=== PATIENT | female | born 1970 | race Caucasian/White ===

== ENCOUNTER 2016-12-24 10:43 | Emergency (ER) | payer SELFPAY ==
[~2016-12-24 10:43] MED LIST: DICL100T2 PO
--- NOTE | 2016-12-24 11:29 | NUR ---
PER CHRISTIE CHIANG, PT TO BE TRIAGED WHEN SHE IS PLACED IN BED.
--- NOTE | 2016-12-24 11:55 | NUR ---
PATIENT LEFT WITHOUT BEING SEEN BY DR. CHRISTOPHER. NO FURTHER CARE PROVIDED FOR PATIENT.
== END 2016-12-24 11:55 | disposition left against medical advice (07) ==
LOC: MED 10:43
DX: Z53.21 Procedure and treatment not carried out due to patient leaving prior to being seen by health care provider (principal)

== ENCOUNTER 2017-05-09 22:50 | Emergency (ER) | payer BC, MEDICAID ==
[~2017-05-09] VITALS: Ht 162.6 cm; Wt 83.1 kg
--- NOTE | 2017-05-09 23:07 | NUR ---
PT TAKEN TO BED 3
[2017-05-09 23:08] VITALS: BP 127/84
--- NOTE | 2017-05-09 23:08 | NUR ---
46 Y/O F W/C/O VAGINAL DISCHARGE/BURNING X 2 WKS S/P WASHING HONEY AREA WITH VINEGAR. NO MED HX. PT STATES WAS AT [facility] X 1 1/2 WK AGO AND SENT HOME WITH A CREAM BUT PT STATES NOT GETTING BETTER. ER MADE AWARE.
--- NOTE | 2017-05-10 00:17 | NUR ---
Patient being evaluated by physician at bedside.
[2017-05-10] MEDS ORDERED: KETOROLAC 60 MG/2 ML VIAL IM ONE (00:25)
[2017-05-10 00:50] VITALS: BP 119/77
--- NOTE | 2017-05-10 00:50 | NUR ---
Patient discharged with v/s stable. Written and verbal after care instructions given and explained. Patient alert, oriented and verbalized understanding of instructions. Ambulatory with steady gait. All questions addressed prior to discharge. ID band removed. Patient advised to follow up with PMD. Rx of HYDROCORTISONE, CIPRO, MOTRIN AND DIFLUCAN given. Patient educated on indication of medication including possible reaction and side effects. Opportunity to ask questions provided and answered.
== END 2017-05-10 00:50 | disposition home or self-care (01) ==
LOC: MED 22:50
DX: N12 Tubulo-interstitial nephritis, not specified as acute or chronic (principal); B37.9 Candidiasis, unspecified; Z79.899 Other long term (current) drug therapy
CPT/HCPCS: 81002; 81025; 96372; 99283; J1885

== ENCOUNTER 2018-11-13 12:53 | Emergency (ER) | payer BC, MEDICAID ==
[~2018-11-13] VITALS: Ht 152.4 cm; Wt 88.0 kg
--- NOTE | 2018-11-13 12:59 | NUR ---
PT AMBULATED TO ER BED 06
[2018-11-13 13:00] VITALS: BP 122/76
--- NOTE | 2018-11-13 13:17 | NUR ---
PPT C/O HEAVY VAGINAL BLEEDING W/ INTERMITTENT CAMPING PELVIC PAIN 5/10 FOR 2 DAYS AND GENERALIZED BODY ACHE. PT STATES SHE HAS NOT HAD PEROID FOR 8 MONTH. SHE CHANGES 5 PADS DAILY APPROXIMATELY. ALSO C/O SORE THROAT, COUGH WITH WHITE PHLEGM SINCE YESTERDAY AND CHRONIC CONSTIPATION. DENIES FEVER, CHEST PAIN, NAUSEA, AND VOMITING. VSS; PATIENT POSITIONED FOR COMFORT; HOB ELEVATED; BEDRAILS UP X1; BED DOWN. ER MD MADE AWARE OF PT STATUS.
[2018-11-13] MEDS ORDERED: PROP10TA28 PO (13:37)
[2018-11-13 14:08] LABS: BASOPHILS % (AUTO) 0.4 % (0.0-2.0); EOSINOPHILS # (AUTO) 0.1 K/uL (0-0.4); EOSINOPHILS % (AUTO) 1.2 % (0.0-4.0); HEMATOCRIT 42.1 % (36-48); HEMOGLOBIN 14.1 g/dL (12.0-16.0); LYMPHOCYTES # (AUTO) 2.7 K/uL (2.5-16.5); LYMPHOCYTES % (AUTO) 22.1 % (20.5-51.1); MEAN CORPUSCULAR HEMOGLOBIN 28 pg (27-31); MEAN CORPUSCULAR HGB CONC 34 g/dL (33-37); MEAN CORPUSCULAR VOLUME 83.4 fL (80-94); MONOCYTES # (AUTO) 0.7 K/uL (0.8-1.0); MONOCYTES % (AUTO) 5.4 % (1.7-9.3); NEUTROPHILS # (AUTO) 8.6 K/uL (1.8-7.7); NEUTROPHILS % (AUTO) 70.9 % (42.2-75.2); PLATELET COUNT (AUTO) 321 K/uL (140-450); RED BLOOD CELL COUNT(AUTO) 5.04 MIL/uL (4.20-5.40); RED CELL DISTRIBUTION WIDTH 13.7 % (11.6-13.7); WHITE BLOOD COUNT (AUTO) 12.2 K/uL (4.8-10.8)
[2018-11-13 14:12] LABS: APPEARANCE,URINE SL CLOUDY (CLEAR); BILIRUBIN,URINE 1+ (NEGATIVE); BLOOD, URINE 3+ (NEGATIVE); COLOR,URINE RED (YELLOW); LEUKOCYTE ESTERASE ,URINE TRACE (NEGATIVE); NITRITE, URINE NEGATIVE (NEGATIVE); PH,URINE 6.5 (5.0-9.0); UGLUCOSE NEGATIVE (NEGATIVE)
[2018-11-13 14:20] LABS: RBC,URINE >100 /HPF (0-5); WBC,URINE 0-5 /HPF (0-5)
--- NOTE | 2018-11-13 14:20 | NUR ---
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
[2018-11-13 14:25] LABS: PROTHROMBIN TIME 9.3 secs (10.8-13.4)
[2018-11-13 15:35] VITALS: BP 120/83
--- NOTE | 2018-11-13 15:36 | NUR ---
Patient discharged with v/s stable. Written and verbal after care instructions given and explained. Patient alert, oriented and verbalized understanding of instructions. Ambulatory with steady gait. All questions addressed prior to discharge. ID band removed. Patient advised to follow up with [facility]. Rx of Provera and Motrin given. Patient educated on indication of medication including possible reaction and side effects. Opportunity to ask questions provided and answered.
== END 2018-11-13 15:36 | disposition home or self-care (01) ==
LOC: MED 12:53
DX: D25.9 Leiomyoma of uterus, unspecified (principal); I10 Essential (primary) hypertension; E05.90 Thyrotoxicosis, unspecified without thyrotoxic crisis or storm; Z98.890 Other specified postprocedural states; Z79.899 Other long term (current) drug therapy
CPT/HCPCS: 36415; 76830; 81001; 81025; 85025; 85610; 85730; 99284; Q0092

== ENCOUNTER 2019-04-18 18:53 | Emergency (ER) | payer MEDICAID ==
[~2019-04-18] VITALS: Ht 162.6 cm; Wt 88.9 kg
[~2019-04-18 18:53] MED LIST changes: -DICL100T2 PO; +PROP10TA28 PO
[2019-04-18 19:18] VITALS: BP 126/74
--- NOTE | 2019-04-18 19:18 | NUR ---
URINE CUP HANDED TO PT FOR SAMPLE
--- NOTE | 2019-04-18 20:34 | NUR ---
PT AMBULATED TO BED 12
--- NOTE | 2019-04-18 20:34 | NUR ---
48 Y/O FEMALE C/O SUDDEN ONSET OF N/V/D X YESTERDAY WITH BODYACHES,FATIGUE, AND GENERALIZED WEAKNESS; ADDS STRONG ODOR TO URINE. CLEAR BREATH SOUNDS THROUGHOUT. ABDOMINAL SOUNDS HEARD ON ALL FOUR QUADRANTS. NO TENDERNESS TO TOUCH; +N/V/D. ERMD MADE AWARE OF STATUS. SIDE RAILSX1. WILL CONTINUE TO MONITOR. HX--HYPERTHYROID RX--UNKNOWN NKDA
[2019-04-18] MEDS ORDERED: NACL 0.9% 1,000 ML IV ONE (21:25)
[2019-04-18 22:26] LABS: BASOPHILS % (AUTO) 0.4 % (0.0-2.0); EOSINOPHILS # (AUTO) 0.1 K/uL (0-0.4); EOSINOPHILS % (AUTO) 1.5 % (0.0-4.0); HEMATOCRIT 42.5 % (36-48); HEMOGLOBIN 13.9 g/dL (12.0-16.0); LYMPHOCYTES # (AUTO) 1.8 K/uL (2.5-16.5); LYMPHOCYTES % (AUTO) 34.3 % (20.5-51.1); MEAN CORPUSCULAR HEMOGLOBIN 28 pg (27-31); MEAN CORPUSCULAR HGB CONC 33 g/dL (33-37); MEAN CORPUSCULAR VOLUME 85.1 fL (80-94); MONOCYTES # (AUTO) 0.6 K/uL (0.8-1.0); MONOCYTES % (AUTO) 11.1 % (1.7-9.3); NEUTROPHILS # (AUTO) 2.7 K/uL (1.8-7.7); NEUTROPHILS % (AUTO) 52.7 % (42.2-75.2); PLATELET COUNT (AUTO) 292 K/uL (140-450); WHITE BLOOD COUNT (AUTO) 5.1 K/uL (4.8-10.8)
[2019-04-18 22:28] LABS: APPEARANCE,URINE CLEAR (CLEAR); BILIRUBIN,URINE NEGATIVE (NEGATIVE); BLOOD, URINE NEGATIVE (NEGATIVE); COLOR,URINE YELLOW (YELLOW); LEUKOCYTE ESTERASE ,URINE NEGATIVE (NEGATIVE); NITRITE, URINE NEGATIVE (NEGATIVE); UGLUCOSE NEGATIVE (NEGATIVE)
[2019-04-18 22:44] LABS: ANION GAP 14.7 (8-16); CARBON DIOXIDE 27.6 mmol/L (21-32); CREATININE 0.6 mg/dL (0.6-1.3); POTASSIUM 3.3 mmol/L (3.5-5.1)
[2019-04-18 22:50] LABS: ALBUMIN 3.7 g/dL (3.4-5.0); TOTAL BILIRUBIN 0.7 mg/dL (0.0-1.0)
[2019-04-18 23:16] VITALS: BP 126/74
--- NOTE | 2019-04-18 23:16 | NUR ---
Patient discharged with v/s stable. Written and verbal after care instructions given and explained. Patient alert, oriented and verbalized understanding of instructions. Ambulatory with steady gait. All questions addressed prior to discharge. ID band removed. Patient advised to follow up with PMD. Rx of ZOFRAN WAS given. Patient educated on indication of medication including possible reaction and side effects. Opportunity to ask questions provided and answered. PT WAS D/C BY DR. LOPEZ
== END 2019-04-18 23:16 | disposition home or self-care (01) ==
LOC: MED 18:53
DX: A08.4 Viral intestinal infection, unspecified (principal); I10 Essential (primary) hypertension; E05.90 Thyrotoxicosis, unspecified without thyrotoxic crisis or storm; Z98.890 Other specified postprocedural states; Z79.899 Other long term (current) drug therapy
CPT/HCPCS: 36415; 80053; 81003; 82150; 83690; 85025; 96360; 99283; J7030

== ENCOUNTER 2019-04-21 21:39 | Emergency (ER) | payer MEDICAID ==
[~2019-04-21] VITALS: Ht 162.6 cm; Wt 88.5 kg
[2019-04-21 22:30] VITALS: BP 121/72
--- NOTE | 2019-04-21 22:33 | NUR ---
TO LOBBY A/W BED AMBULATORY
[2019-04-22 00:43] LABS: APPEARANCE,URINE CLOUDY (CLEAR); BILIRUBIN,URINE NEGATIVE (NEGATIVE); BLOOD, URINE NEGATIVE (NEGATIVE); COLOR,URINE YELLOW (YELLOW); LEUKOCYTE ESTERASE ,URINE NEGATIVE (NEGATIVE); NITRITE, URINE NEGATIVE (NEGATIVE); UGLUCOSE NEGATIVE (NEGATIVE)
--- NOTE | 2019-04-22 00:59 | NUR ---
PT AMBULATED TO ER BED 03
--- NOTE | 2019-04-22 01:30 | NUR ---
48 Y/O FEMALE C/O ABD PAIN NEAR SUPRAPUBIC REGION X 3DAYS. PT STATES SHE HAS URNIARY FREQUENCY, BURNING SENSATION. DENIES ANY N,V,FEVER, OR BLOOD IN URINE. PT STATES SHE HAD DIAHRREA 2 DAYS AGO AND WAS CONSTIPATED YESTERDAY. VSS. ABD IS ROUND, SOFT, TENDER ON SUPRAPUBIC REGION. A & O X4. STEADY GAIT. LUNG SOUNDS CLEAR ALL THROUGHOUT. NKA. PMH: HYPERTHYROID, FIBROIDS ON OVARIES.
[2019-04-22] MEDS ORDERED: KETOROLAC 60 MG/2 ML VIAL IM ONE (02:30)
[2019-04-22 02:45] LABS: BASOPHILS % (AUTO) 0.4 % (0.0-2.0); EOSINOPHILS # (AUTO) 0.1 K/uL (0-0.4); EOSINOPHILS % (AUTO) 1.9 % (0.0-4.0); HEMATOCRIT 41.5 % (36-48); HEMOGLOBIN 13.7 g/dL (12.0-16.0); LYMPHOCYTES # (AUTO) 2.9 K/uL (2.5-16.5); LYMPHOCYTES % (AUTO) 46.7 % (20.5-51.1); MEAN CORPUSCULAR HEMOGLOBIN 28 pg (27-31); MEAN CORPUSCULAR HGB CONC 33 g/dL (33-37); MEAN CORPUSCULAR VOLUME 83.5 fL (80-94); MONOCYTES # (AUTO) 0.5 K/uL (0.8-1.0); MONOCYTES % (AUTO) 7.9 % (1.7-9.3); NEUTROPHILS # (AUTO) 2.7 K/uL (1.8-7.7); NEUTROPHILS % (AUTO) 43.1 % (42.2-75.2); PLATELET COUNT (AUTO) 293 K/uL (140-450); RED BLOOD CELL COUNT(AUTO) 4.97 MIL/uL (4.20-5.40); RED CELL DISTRIBUTION WIDTH 13.8 % (11.6-13.7); WHITE BLOOD COUNT (AUTO) 6.2 K/uL (4.8-10.8)
[2019-04-22 03:00] LABS: ALBUMIN 3.7 g/dL (3.4-5.0); ANION GAP 11.1 (8-16); CARBON DIOXIDE 29.7 mmol/L (21-32); CREATININE 0.6 mg/dL (0.6-1.3); POTASSIUM 3.8 mmol/L (3.5-5.1); TOTAL BILIRUBIN 0.6 mg/dL (0.0-1.0)
[2019-04-22 04:08] VITALS: BP 121/72
--- NOTE | 2019-04-22 04:08 | NUR ---
Patient discharged with v/s stable. Written and verbal after care instructions given and explained. Patient alert, oriented and verbalized understanding of instructions. Ambulatory with steady gait. All questions addressed prior to discharge. ID band removed. Patient advised to follow up with PMD. Rx of BENTYL, AND LACTULOSE given. Patient educated on indication of medication including possible reaction and side effects. Opportunity to ask questions provided and answered.
== END 2019-04-22 04:08 | disposition home or self-care (01) ==
LOC: MED 21:39
DX: R10.9 Unspecified abdominal pain (principal); R30.0 Dysuria; I10 Essential (primary) hypertension; E05.90 Thyrotoxicosis, unspecified without thyrotoxic crisis or storm; Z79.899 Other long term (current) drug therapy
CPT/HCPCS: 36415; 80053; 81003; 82150; 83690; 84703; 85025; 96372; 99283; J1885

== ENCOUNTER 2019-05-17 07:03 | Emergency (ER) | payer MEDICAID ==
[~2019-05-17] VITALS: Ht 157.5 cm; Wt 88.5 kg
[2019-05-17 07:06] VITALS: BP 157/100
--- NOTE | 2019-05-17 07:12 | NUR ---
PT TAKEN TO BED 4
--- NOTE | 2019-05-17 07:24 | NUR ---
PT AMBULATED TO RESTROOM, GAVE SPECIMEN
[2019-05-17] MEDS ORDERED: MECLIZINE 25 MG TAB PO ONE (07:35)
[2019-05-17] MEDS ORDERED: ONDANSETRON 4 MG/2 ML VIAL IVP ONE (07:35)
[2019-05-17] MEDS ORDERED: NACL 0.9% 1,000 ML IV ONE (07:35)
--- NOTE | 2019-05-17 08:42 | NUR ---
Stable. VSS. Afebrile. Denies pain. Awaiting dispo
[2019-05-17 08:51] LABS: BASOPHILS # (AUTO) 0.1 K/uL (0.00-0.22); BASOPHILS % (AUTO) 0.8 % (0.0-2.0); EOSINOPHILS # (AUTO) 0.1 K/uL (0-0.4); EOSINOPHILS % (AUTO) 1.5 % (0.0-4.0); HEMATOCRIT 42.2 % (36-48); HEMOGLOBIN 14.2 g/dL (12.0-16.0); LYMPHOCYTES # (AUTO) 3.9 K/uL (2.5-16.5); MEAN CORPUSCULAR HEMOGLOBIN 28 pg (27-31); MEAN CORPUSCULAR HGB CONC 34 g/dL (33-37); MEAN CORPUSCULAR VOLUME 82.5 fL (80-94); MONOCYTES # (AUTO) 0.7 K/uL (0.8-1.0); MONOCYTES % (AUTO) 6.7 % (1.7-9.3); NEUTROPHILS # (AUTO) 5.4 K/uL (1.8-7.7); PLATELET COUNT (AUTO) 318 K/uL (140-450); RED BLOOD CELL COUNT(AUTO) 5.11 MIL/uL (4.20-5.40); RED CELL DISTRIBUTION WIDTH 13.5 % (11.6-13.7); WHITE BLOOD COUNT (AUTO) 10.2 K/uL (4.8-10.8)
[2019-05-17 09:01] LABS: APPEARANCE,URINE SL CLOUDY (CLEAR); BILIRUBIN,URINE 1+ (NEGATIVE); BLOOD, URINE TRACE-I (NEGATIVE); COLOR,URINE DARK YELLOW (YELLOW); LEUKOCYTE ESTERASE ,URINE 2+ (NEGATIVE); NITRITE, URINE NEGATIVE (NEGATIVE); UGLUCOSE NEGATIVE (NEGATIVE)
[2019-05-17 09:03] LABS: ALBUMIN 3.9 g/dL (3.4-5.0); ANION GAP 11.8 (8-16); CARBON DIOXIDE 27.5 mmol/L (21-32); CREATININE 0.6 mg/dL (0.6-1.3); POTASSIUM 3.3 mmol/L (3.5-5.1); TOTAL BILIRUBIN 0.8 mg/dL (0.0-1.0)
[2019-05-17] MEDS ORDERED: LORazepam 2 MG/ML VIAL IVP ONE (09:25)
[2019-05-17 10:20] VITALS: BP 128/77
--- NOTE | 2019-05-17 10:27 | NUR ---
Stable. VSS. Afebrile. Denies pain. MD has reassessed and Dc'd home To exit
--- NOTE | 2019-05-18 11:50 | NUR ---
Late entry. Confirmed with RN that 0.9 NS IV began at 0745 and completed at 0845
== END 2019-05-17 10:27 | disposition home or self-care (01) ==
LOC: MED 07:03
DX: R42 Dizziness and giddiness (principal); R11.0 Nausea; I10 Essential (primary) hypertension; E07.9 Disorder of thyroid, unspecified; Z79.899 Other long term (current) drug therapy
CPT/HCPCS: 36415; 80053; 81001; 81025; 85025; 87086; 87186; 93005; 96361; 96374; 96375; 99284; J2060; J2405; J7030; J8597

== ENCOUNTER 2019-06-22 16:02 | Emergency (ER) | payer MEDICAID ==
[~2019-06-22] VITALS: Ht 152.4 cm; Wt 86.2 kg
[2019-06-22 16:09] VITALS: BP 126/77
== END 2019-06-22 17:06 | disposition home or self-care (01) ==
LOC: MED 16:02
DX: R05 Cough (principal); I10 Essential (primary) hypertension; E07.9 Disorder of thyroid, unspecified; Z79.899 Other long term (current) drug therapy
CPT/HCPCS: 81002; 81025; 96372; 99283; 99284

== ENCOUNTER 2020-10-19 08:53 | Day surgery (SDC) | payer MEDICAID ==
[~2020-10-19] VITALS: Ht 152.4 cm; Wt 87.1 kg
[2020-10-19] MEDS ORDERED: fentaNYL citrate 0.05 MG/ML VIAL ONE (12:54)
[2020-10-19] MEDS ORDERED: MIDAZOLAM 5 MG/5 ML VIAL ONE (12:54)
[2020-10-19] MEDS ORDERED: LIDOCAINE 2% 100 MG/5 ML UJET TP ONE ×2 (12:54→13:30)
[2020-10-19] MEDS ORDERED: fentaNYL citrate 0.05 MG/ML VIAL IVP ONE (13:30)
[2020-10-19] MEDS ORDERED: MIDAZOLAM 2 MG/2 ML VIAL IVP ONE (13:30)
== END 2020-10-19 14:15 | disposition home or self-care (01) ==
LOC: MDS 08:53 → MMU 08:55 → MDS 14:15
PROVIDERS: ATTEND Internal Medicine Gastroenterology
DX: Z12.11 Encounter for screening for malignant neoplasm of colon (principal); R12 Heartburn; K57.30 Diverticulosis of large intestine without perforation or abscess without bleeding; K92.1 Melena; K21.9 Gastro-esophageal reflux disease without esophagitis; Z79.899 Other long term (current) drug therapy
CPT/HCPCS: 43235; 45378; J2250; J3010

== ENCOUNTER 2023-03-12 19:08 | Emergency (ER) | payer MEDICAID, OTHER ==
[~2023-03-12] VITALS: Ht 157.5 cm; Wt 90.3 kg
[2023-03-12 19:15] VITALS: BP 126/70; PULSE 88; RESP 20; TEMP 98.4; O2SAT 98
[2023-03-12] MEDS ORDERED: ONDANSETRON 4 MG ODT PO ONE (19:25)
[2023-03-12] MEDS ORDERED: KETOROLAC 60 MG/2 ML VIAL IM ONE (19:50)
[2023-03-12] MEDS ORDERED: ONDA8TAB87 PO (20:09)
[2023-03-12] MEDS ORDERED: PRED20TA5 PO (20:09)
[2023-03-12] MEDS ORDERED: IBUP-2213 PO (20:09)
[2023-03-12 20:24] VITALS: BP 126/70; PULSE 88; RESP 20; TEMP 98.4; O2SAT 98
== END 2023-03-12 20:23 | disposition home or self-care (01) ==
LOC: MED 19:08
DX: J06.9 Acute upper respiratory infection, unspecified (principal); R11.2 Nausea with vomiting, unspecified; E11.9 Type 2 diabetes mellitus without complications; I10 Essential (primary) hypertension; Z86.39 Personal history of other endocrine, nutritional and metabolic disease; Z98.890 Other specified postprocedural states; Z79.899 Other long term (current) drug therapy
CPT/HCPCS: 96372; 99283; J1885; Q0162

== ENCOUNTER 2023-04-14 21:26 | Emergency (ER) | payer OTHER ==
[~2023-04-14] VITALS: Ht 152.4 cm; Wt 89.4 kg
[~2023-04-14 21:26] MED LIST changes: +IBUP-2213 PO; +ONDA8TAB87 PO; +PRED20TA5 PO
[2023-04-14 22:30] VITALS: BP 121/92; PULSE 80; RESP 16; TEMP 98.4; O2SAT 96
[2023-04-15 00:20] VITALS: BP 121/92; PULSE 80; RESP 16; TEMP 98.4; O2SAT 96
== END 2023-04-15 00:20 | disposition left against medical advice (07) ==
LOC: MED 21:26
DX: R05.9 Cough, unspecified (principal); J02.9 Acute pharyngitis, unspecified; M25.552 Pain in left hip; Z53.21 Procedure and treatment not carried out due to patient leaving prior to being seen by health care provider
CPT/HCPCS: 99281